=== PATIENT | female | born 1960 | race Caucasian/White ===

== ENCOUNTER 2022-03-02 11:31 | Emergency (ER) | payer BC ==
[2022-03-02] MEDS ORDERED: Sodium Chloride 0.9% 1,000 ML IV SCH (13:15)
[2022-03-02 13:52] LABS: ESTIMATED GFR 83 mL/min (>60)
[2022-03-02 13:53] LABS: TROPONIN I HIGH SENSITIVITY < 4.0 pg/mL (<=60.3)
== END 2022-03-02 14:54 | disposition home or self-care (01) ==
LOC: JP.ED 11:31
DX: U07.1 COVID-19 (principal); R55 Syncope and collapse; Z88.0 Allergy status to penicillin; Z88.1 Allergy status to other antibiotic agents; Z79.02 Long term (current) use of antithrombotics/antiplatelets; Z79.899 Other long term (current) drug therapy
CPT/HCPCS: 36415; 71046; 80048; 84145; 84484; 85025; 87635; 93005; 96360; 99284; J7030; U0002